=== PATIENT | male | born 1950 | race Caucasian/White ===

== ENCOUNTER 2018-10-21 07:52 | Emergency (ER) | payer OTHER, BC ==
[2018-10-21 08:08] VITALS: BP 160/86; PULSE 90; TEMP 97.8; BMI 34.2
[2018-10-21] MEDS ORDERED: DIPHTH,PERTUSS(ACELL),TET 0.5 ML DISP.SYRIN IM ONE ×2 (08:43→08:48)
[2018-10-21] MEDS ORDERED: ACETAMINOPHEN 325 MG TABLET (FP) PO ONE (08:43)
[2018-10-21] MEDS ORDERED: ACETAMINOPHEN 325 MG TABLET (FP) ONE (08:47)
--- NOTE | 2018-10-21 08:47 | PDOC ---
History of Present Illness - General Chief Complaint: Injury Stated Complaint: FALL Time Seen by Provider: 10/21/18 08:23 History Source: Patient Exam Limitations: No Limitations - History of Present Illness Initial Comments: 10/21/18 08:44 68 year old male with medical history of htn and cholesterol, and surgical history of appendectomy presents with laceration to left scalp after slip and fall this am while climbing steps. Denies loc or nausea. Occurred: reports: just prior to arrival Severity: reports: moderate Pain Location: reports: head Method of Injury: Yes: fall Modifying Factors: improves with: pain medication Loss of Consciousness: no loss of consciousness Associated Symptoms (Fall): headache Past History - Past Medical History Allergies/Adverse Reactions: Allergies Allergy/AdvReac Type Severity Reaction Status Date / Time No Known Allergies Allergy Verified 10/21/18 08:05 Home Medications: Ambulatory Orders Atorvastatin Calcium [Lipitor] 10 mg PO DAILY 05/29/12 Valsartan [Diovan] 40 mg PO DAILY 05/29/12 Acetaminophen 500 mg PO QID #20 tablet 10/21/18 COPD: No HTN: Yes Hypercholesterolemia: Yes Kidney Stones: Yes (X 3) - Surgical History Appendectomy: Yes - Immunization History Td Vaccination: No Immunization Up to Date: No - Suicide/Smoking/Psychosocial Hx Smoking Status: No Smoking History: Current some day smoker Have you smoked in the past 12 months: Yes Number of Cigarettes Smoked Daily: 0 Information on smoking cessation initiated: No Hx Alcohol Use: No Drug/Substance Use Hx: No Trauma Specific PMHX - Complaint Specific PMHX Arthritis: No Back Injury: No Neck Injury: No Hx Sacro Iliac Joint Dysfunction: No Review of Systems - Review of Systems Able to Perform ROS?: Yes Is the patient limited Greek proficient: No Constitutional: No: Chills, Fever HEENTM: Yes: Other (injury to head). No: Blurred Vision, Hearing Loss, Throat Pain Respiratory: No: Cough, Orthopnea, Wheezing Cardiac (ROS): No: Edema, Lightheadedness, Palpitations ABD/GI: No: Constipated, Poor Appetite, Vomiting, Indigestion : No: Incontinence Musculoskeletal: No: Back Pain, Joint Pain, Neck Pain Integumentary: No: Bruising, Erythema, Flushing Neurological: Yes: Headache. No: Tingling Psychiatric: No: Stressors *Physical Exam - Vital Signs Last Vital Signs Temp Pulse Resp BP Pulse Ox 97.8 F 90 18 160/86 100 10/21/18 08:06 10/21/18 08:06 10/21/18 08:06 10/21/18 08:06 10/21/18 08:06 - Physical Exam General Appearance: Yes: Nourished, Appropriately Dressed HEENT: positive: Pharynx Normal. negative: Scleral Icterus (R), Rhinorrhea Neck: positive: Supple. negative: Lymphadenopathy (R), Lymphadenopathy (L) Respiratory/Chest: positive: Lungs Clear, Normal Breath Sounds Cardiovascular: positive: Regular Rhythm, Regular Rate Extremity: positive: Normal Capillary Refill Neurologic: positive: supervisor carton and can supply II-XII NML intact, Fully Oriented, Alert Procedures - Laceration/Wound Repair Posterior Occipital Wound Length: 2.6 to 5.0 cm Wound Explored: no foreign body present Wound's Depth, Shape: superficial, irregular Irrigated w/ Saline: Yes Betadine Prep: Yes Anesthesia: 2% Lidocaine Wound Debrided: minimal Wound Repaired With: Dave Number of Sutures: 4 Layer Closure: No Medical Decision Making - Medical Decision Making 10/21/18 08:47 68 year old male with medical history of htn and cholesterol, and surgical history of appendectomy presents with laceration to left scalp after slip and fall this am while climbing steps. Plan: analgesia tetanus head ct 10/21/18 10:05 laceration repair [address] on back of scalp Head ct results + hematoma no acute infarct *DC/Admit/Observation/Transfer Diagnosis at time of Disposition: Occipital scalp laceration Qualifiers: Encounter type: initial encounter Qualified Code(s): S01.01XA - Laceration without foreign body of scalp, initial encounter - Discharge Dispostion Disposition: HOME Condition at time of disposition: Good Decision to Admit order: No - Prescriptions Prescriptions: Acetaminophen 500 mg PO QID #20 tablet - Referrals - Patient Instructions Printed Discharge Instructions: DI for Laceration Repair of the Scalp Additional Instructions: Please keep wound dry and clean Do not remove dressing for 24 hours then you may wash area gently Pleas make sure some one is around to arouse you when you are sleeping for next 72 hours Return to ed in 7 to 10 days for suture removal ( 11/01/18) - Post Discharge Activity Forms/Work/School Notes: Back to Work
== END 2018-10-21 10:28 | disposition home or self-care (01) ==
LOC: JERFT 07:52
PROC: 3E0234Z Introduction of Serum, Toxoid and Vaccine into Muscle, Percutaneous Approach (ICD-10-PCS; principal; 2018-10-21)
DX: S01.01XA Laceration without foreign body of scalp, initial encounter (principal); W01.10XA Fall on same level from slipping, tripping and stumbling with subsequent striking against unspecified object, initial encounter; Y93.89 Activity, other specified; Y92.89 Other specified places as the place of occurrence of the external cause; I10 Essential (primary) hypertension; E78.00 Pure hypercholesterolemia, unspecified; N20.0 Calculus of kidney; F17.210 Nicotine dependence, cigarettes, uncomplicated
CPT/HCPCS: 70450-TC; 90715; 99281-25

== ENCOUNTER 2018-10-29 11:47 | Emergency (ER) | payer OTHER, BC ==
[2018-10-29 12:00] VITALS: BP 132/78; PULSE 77; TEMP 98.1; BMI 33.5
--- NOTE | 2018-10-29 13:51 | PDOC ---
Suture Removal/Wound Check HPI - History of Present Illness Chief Complaint: Suture/Staple Removal(Here) Stated Complaint: REMOVAL OF SITCHES Time Seen by Provider: 10/29/18 12:57 History Source: Yes: Patient Exam Limitations: Yes: No Limitations Date of Last ED visit: 10/21/18 - Previous ED Treatment Type of procedure performed on last visit: Yes: Laceration Repair Tetanus Immunization: Yes: Up to Date, Given at last ED visit - Onset of Previous Treatment Date of Occurence: 10/21/18 Past History - Travel Traveled outside of the country in the last 30 days: No Close contact w/someone who was outside of country & ill: No - Past Medical History Allergies/Adverse Reactions: Allergies Allergy/AdvReac Type Severity Reaction Status Date / Time No Known Allergies Allergy Verified 10/29/18 11:59 Home Medications: Ambulatory Orders Atorvastatin Calcium [Lipitor] 10 mg PO DAILY 05/29/12 Valsartan [Diovan] 40 mg PO DAILY 05/29/12 Acetaminophen 500 mg PO QID #20 tablet 10/21/18 COPD: No HTN: Yes Hypercholesterolemia: Yes Kidney Stones: Yes (X 3) - Surgical History Appendectomy: Yes - Immunization History Td Vaccination: No Immunization Up to Date: No - Suicide/Smoking/Psychosocial Hx Smoking Status: No Smoking History: Never smoked Have you smoked in the past 12 months: Yes Number of Cigarettes Smoked Daily: 0 Information on smoking cessation initiated: No Hx Alcohol Use: No Drug/Substance Use Hx: No Suture Removal/Wound Check PE - Physical Exam Laceration/Wound Check Symptoms: reports: None Current Severity Level: None Maximum Severity Level: None Pain Localization: None Location of Laceration/Wound: bilateral: Head Pain Radiation: None *Review of Systems - Review of Systems Able to Perform ROS?: Yes Constitutional: No: Chills, Fever HEENTM: No: Cataracts, Ear Pain Respiratory: No: Orthopnea Cardiac (ROS): No: Chest Pain, Lightheadedness ABD/GI: No: Poor Appetite : No: Burning, Dysuria, Incontinence Musculoskeletal: No: Joint Pain, Muscle Weakness Integumentary: No: Bruising Neurological: No: Headache, Numbness, Paresthesia, Tremors, Weakness *Physical Exam - Vital Signs Last Vital Signs Temp Pulse Resp BP Pulse Ox 98.1 F 77 18 132/78 97 10/29/18 11:57 10/29/18 11:57 10/29/18 11:57 10/29/18 11:57 10/29/18 11:57 Medical Decision Making - Medical Decision Making 10/29/18 13:48 68 year old male presents for staple removal from scalp. Denies headache dizziness or drainage from wound 4 dave removed, no bleeding at site *DC/Admit/Observation/Transfer Diagnosis at time of Disposition: Removal of dave - Discharge Dispostion Disposition: HOME Condition at time of disposition: Good Decision to Admit order: No - Referrals Referrals: Louis Irvin MD [Primary Care Provider] - - Patient Instructions Printed Discharge Instructions: DI for Suture Removal Additional Instructions: please wash area gently Return for dizziness or lightheadedness - Post Discharge Activity Forms/Work/School Notes: Back to Work
== END 2018-10-29 14:16 | disposition home or self-care (01) ==
LOC: JERFT 11:47
DX: Z48.817 Encounter for surgical aftercare following surgery on the skin and subcutaneous tissue (principal); Z48.02 Encounter for removal of sutures
CPT/HCPCS: 99281-25

== ENCOUNTER 2018-12-24 08:12 | Day surgery (SDC) | payer OTHER, BC ==
[2018-12-24 09:08] VITALS: BMI 34.5
[2018-12-24 10:17] VITALS: TEMP 98.4
[2018-12-24 11:04] VITALS: BP 104/73; PULSE 59
== END 2018-12-24 11:02 | disposition home or self-care (01) ==
LOC: JASU-ENDO 08:12
PROVIDERS: ATTEND Internal Medicine Gastroenterology
PROC: 0DBL8ZX Excision of Transverse Colon, Via Natural or Artificial Opening Endoscopic, Diagnostic (ICD-10-PCS; 2018-12-24)
PROC: 0DBN8ZX Excision of Sigmoid Colon, Via Natural or Artificial Opening Endoscopic, Diagnostic (ICD-10-PCS; 2018-12-24)
PROC: 0DBC8ZX Excision of Ileocecal Valve, Via Natural or Artificial Opening Endoscopic, Diagnostic (ICD-10-PCS; principal; 2018-12-24 09:00)
DX: Z12.11 Encounter for screening for malignant neoplasm of colon (principal); K57.30 Diverticulosis of large intestine without perforation or abscess without bleeding; D12.5 Benign neoplasm of sigmoid colon; D12.3 Benign neoplasm of transverse colon
CPT/HCPCS: 88305-TC

== ENCOUNTER 2019-01-02 08:16 | Day surgery (SDC) | payer OTHER, BC | END 2019-01-02 10:40 | disposition home or self-care (01) | LOC: JASU-ENDO 08:16 ==

== ENCOUNTER 2020-11-06 14:12 | Emergency (ER) | payer OTHER, BC ==
[2020-11-08 10:11] LABS: SARS-CoV-2 NAA Not Detected (Not Detected)
== END 2020-11-06 15:03 | disposition home or self-care (01) ==
LOC: JVIRT 14:12
DX: R05 Cough (principal); Z11.52 Encounter for screening for COVID-19
CPT/HCPCS: C9803; G2251-GT; U0003; U0005

== ENCOUNTER 2022-08-17 04:11 | Day surgery (SDC) | payer OTHER, BC ==
[2022-08-15 16:45] VITALS: BMI 34.2
[2022-08-17 10:45] VITALS: TEMP 97.5
[2022-08-17 11:28] VITALS: BP 112/64; PULSE 59; RESP 16
== END 2022-08-17 11:32 | disposition home or self-care (01) ==
LOC: JASU-ENDO 04:11
PROVIDERS: ATTEND Internal Medicine Gastroenterology
PROC: 0DBL8ZX Excision of Transverse Colon, Via Natural or Artificial Opening Endoscopic, Diagnostic (ICD-10-PCS; 2022-08-17)
PROC: 0DBK8ZX Excision of Ascending Colon, Via Natural or Artificial Opening Endoscopic, Diagnostic (ICD-10-PCS; 2022-08-17)
PROC: 0DBL8ZX Excision of Transverse Colon, Via Natural or Artificial Opening Endoscopic, Diagnostic (ICD-10-PCS; 2022-08-17)
PROC: 0DBM8ZX Excision of Descending Colon, Via Natural or Artificial Opening Endoscopic, Diagnostic (ICD-10-PCS; principal; 2022-08-17 10:15)
DX: Z12.11 Encounter for screening for malignant neoplasm of colon (principal); D12.2 Benign neoplasm of ascending colon; D12.3 Benign neoplasm of transverse colon; D12.4 Benign neoplasm of descending colon; K57.30 Diverticulosis of large intestine without perforation or abscess without bleeding; K64.8 Other hemorrhoids; Z86.010 Personal history of colon polyps; I10 Essential (primary) hypertension
CPT/HCPCS: 88305-TC

== ENCOUNTER 2022-10-12 04:05 | Day surgery (SDC) | payer OTHER, BC ==
[2022-10-11 11:49] VITALS: BMI 34.2
[2022-10-12 11:50] VITALS: TEMP 97
[2022-10-12 12:17] VITALS: BP 112/70; PULSE 62; RESP 19
== END 2022-10-12 12:28 | disposition home or self-care (01) ==
LOC: JASU-ENDO 04:05
PROVIDERS: ATTEND Internal Medicine Gastroenterology
PROC: 0DB78ZX Excision of Stomach, Pylorus, Via Natural or Artificial Opening Endoscopic, Diagnostic (ICD-10-PCS; 2022-10-12)
PROC: 0DB68ZX Excision of Stomach, Via Natural or Artificial Opening Endoscopic, Diagnostic (ICD-10-PCS; principal; 2022-10-12 11:00)
DX: K21.9 Gastro-esophageal reflux disease without esophagitis (principal); K29.50 Unspecified chronic gastritis without bleeding; K31.7 Polyp of stomach and duodenum
CPT/HCPCS: 88305-TC; 88342-TC